=== PATIENT | male | born 1955 | race Caucasian/White ===

== ENCOUNTER 2025-02-02 07:41 | Observation (INO) ==
--- NOTE | 2025-01-11 13:50 | PAT Medication Instructions ---
Medication Instructions Date of Service January 11, 2025 Home Medications atorvastatin 20 mg tablet 20 mg PO QAM cyanocobalamin (vitamin B-12) 500 mcg tablet 500 mcg PO DAILY ginseng root 250 mg capsule 250 mg PO DAILY pyridoxine (vitamin B6) 100 mg tablet 100 mg PO DAILY STOP taking 2 weeks before surgery (or as soon as possible): ginseng root 250 mg capsule 250 mg PO DAILY DO NOT take the morning of surgery cyanocobalamin (vitamin B-12) 500 mcg tablet 500 mcg PO DAILY pyridoxine (vitamin B6) 100 mg tablet 100 mg PO DAILY Take morning of surgery With a small sip of water, OTHERWISE NOTHING TO EAT OR DRINK AFTER MIDNIGHT: atorvastatin 20 mg tablet 20 mg PO QAM Other Notes If you have any questions please call us at [phone] or [phone] or [phone] or [phone]
--- NOTE | 2025-01-16 10:21 | Anesthesiology Consultation ---
Date of Service January 16, 2025 Assessment & Plan (1) Encounter for pre-operative examination: - Check BSG DOS - Infectious disease screening: Per assessment on 01/16/25- No known recent infectious disease contacts or current infectious disease symptoms. - Outpatient joint assessment: Pt currently scheduled for inpatient pathway. If surgeon requests review for outpatient joint pathway, patient is an acceptable candidate for outpatient joint program from anesthesia standpoint pending surgeon's office assessment that patient is motivated, has good support and completes [facility] preop requirements. - New diagnosis diabetes: Patient had elevated glucose at 226 on preop labs. No reported history of diabetes or prediabetes at time of PAT visit. A1C added to preop testing and resulted at 6.9%. Spoke with patient via phone regarding preop lab findings and he indicated that he might have remotely been told hx of prediabetes. Eufemia with surgeon's office made aware. Note written to PCP regarding elevated glucose/A1C- Awaiting response (Dr. Donna Harkins). Patient otherwise acceptable risk for surgery. Chart Review Chart Review: Patient seen in Pre Admission Testing Teaching & Discussion Pre-Anesthesia Teaching/Discussion Notes: Instructed NPO after midnight before surgery,except medications with 15 cc of water. Medication instructions provided according to the PAT guidelines. History Surgery Operation Date: 01/29/25 12:15 Proposed Procedures p Right Total Knee Arthroplasty - Dionicio Young DO Height/Weight Height: 6 ft 1 in Weight: 110.1 kg Allergies Allergy/AdvReac Type Severity Reaction Status Date / Time Sulfa (Sulfonamide Allergy Severe Swelling, Verified 01/12/25 12:43 Antibiotics) fever Medications Home Medications Medication Instructions Recorded Confirmed Last Taken atorvastatin 20 mg tablet 20 mg PO QAM 01/05/25 01/05/25 Unknown cyanocobalamin (vitamin B-12) 500 500 mcg PO DAILY 01/05/25 01/05/25 Unknown mcg tablet ginseng root 250 mg capsule 250 mg PO DAILY 01/05/25 01/05/25 Unknown pyridoxine (vitamin B6) 100 mg 100 mg PO DAILY 01/05/25 01/05/25 Unknown tablet Past Medical History Medical History History of colitis 1990s History of COVID-2019 Hx of gastroesophageal reflux (GERD) Hyperlipidemia Osteoarthritis Exercise / Class Metabolic Activity II 4-5 Yardwork/Stairs/Walk up hill (one FS: no CP, no SOB) Past Surgical History Surgical History History of colonoscopy History of tooth extraction Past Anesthesia History No Hx of Anesthesia Complications and No Family Hx of Anesthesia Complications History of PONV No Hx of PONV and No Hx of Motion Sickness Social History Smoking Status: Former smoker Do You Dip or Chew Tobacco: No (Quit 40 years ago) Smoking End Date: Quit 40 years ago Hx Alcohol Use: Yes Alcohol type: wine alcohol intake frequency: holidays/special occasions only Hx Substance Use: No substance use type: does not use Review of Systems Rare palpitations. Patient denies chest pain, shortness of breath, dyspnea on exertion, fever, chills, cough, wheezing. Physical Exam Vital Signs BP 107/68 P 69 TEMP 98.6 SP02 97%RA RESP 16 Physical Full cervical extension range of motion. Full TMJ range of motion. TMD > 3.5finger breaths Mallampati Score II Dentition: missing molars, right lower side "broken tooth" Lungs: clear throughout to auscultation Cardiac: regular rate and rhythm, no murmurs noted Spine: normal Carotid arteries: negative bruit Extremities: no LE edema Lab Results Anesthesia Preop Results Results Anesthesia Widget: WBC 5.05 K/ul (4.8-10.8) 01/16/25 Hgb 14.6 g/dl (14.0-18.0) 01/16/25 Hct 45.1 % (42.0-52.0) 01/16/25 Plt 148 K/uL (130-400) 01/16/25 Na 140 mmol/L (136-145) 01/16/25 K 5.0 mmol/L (3.5-5.1) 01/16/25 Cl 103 mmol/L (98-107) 01/16/25 CO2 32 mmol/L (21-32) 01/16/25 BUN 16 mg/dl (6-23) 01/16/25 Creat 1.01 mg/dl (0.6-1.4) 01/16/25 Glucose Level 226 mg/dl (70-99(Fasting)) H 01/16/25 PT 10.4 Seconds (9.0-12.0) 01/16/25 PTT 27 Seconds (21-31) 01/16/25 INR 1.0 (0.9-1.1) 01/16/25 HA1c 6.9 % (4.5-5.6) H 01/16/25 Blood Type O Positive 01/16/25 Antibody Screen NEGATIVE 01/16/25 Testing Electrocardiogram Date: 01/16/25 NSR at 61bpm. LAD. Chest X-Ray Date: 01/16/25 Findings: + NAD Stress Test Date: 01/01/21 EF 65-70%. No stress EKG ischemic changes. Negative stress echo for ischemia. 99% MPHR. Estimated workload 13.48. "Normal stress echocardiogram."
[~2025-02-02 07:41] MED LIST: BUPIVACAINE 0.25% PF 30 ML VIAL ONE; BUPIVACAINE 0.5 % 5 MG/1 ML PF 10ML VIAL ONE; DEXAMETHASONE SOD INJ 4 MG/ML VIAL ONE; EPINEPHrine INJ 1 MG/ML AMP ONE
[2025-02-02] MEDS: FAMOTIDINE 20 MG TAB PO SCH ×2 (08:12→14:19)
[2025-02-02] MEDS: ACETAMINOPHEN 500 MG TAB PO SCH ×3 (08:12→14:30)
[2025-02-02] MEDS: LR 60ML/HR IV SCH ×2 (08:13→14:20)
[2025-02-02] MEDS: GABAPENTIN 300 MG CAP PO SCH ×2 (08:13→14:19)
[2025-02-02] MEDS: LR 500ML BOLUS, THEN 15ML/HR IV SCH ×2 (08:58→14:20)
[2025-02-02] MEDS: dexAMETHasone**PF** 10 MG/ML VIAL IV SCH ×2 (08:58→14:19)
--- NOTE | 2025-02-02 09:02 | History & Physical Bridge Note ---
Date of Service February 02, 2025 History & Physical Bridge Note I have examined the patient, reviewed the History & Physical and in the interval since the performance of the History & Physical I have noted the following changes of clinical significance: no changes noted
[2025-02-02] MEDS ORDERED: MIDAZOLAM HCL 1 MG/ML 2ML VIAL ONE (09:36)
[2025-02-02] MEDS ORDERED: fentaNYL citrate PF 100 MCG/2 ML VIAL ONE (09:36)
[2025-02-02] MEDS: TRANEXAMIC ACID 1,000 MG **IV Pre-op IV SCH ×2 (09:41→14:20)
[2025-02-02] MEDS: ceFAZolin 2000MG 2,000 MG/15 ML SYR IV SCH ×3 (09:52→14:30)
[2025-02-02] MEDS ORDERED: PROPOFOL IV EMULSION 10 MG/ML 20 ML VIAL IV ONE (09:58)
[2025-02-02] MEDS: ROPIV 0.5% 246mg, Ketorolac 30mg, EPINEPHrine 0.5mg in NSS INFIL SCH ×2 (10:26→14:20)
[2025-02-02] MEDS: ORTHO JOINT ANESTHETIC ONE (10:27)
[2025-02-02] MEDS: TRANEXAMIC ACID 1,000 MG **IV Intra-op IV SCH ×2 (11:11→14:20)
--- NOTE | 2025-02-02 11:15 | Operative Report ---
PG Post Operative Report Pre & Post Diagnosis Operation Date: 02/02/25 10:00 Pre-Op Diagnosis: Right Knee Osteoarthritis Post-Op Diagnosis: Right Knee Osteoarthritis I identified the patient and participated in the time-out.: Yes Procedure Operation Date: 02/02/25 10:00 Actual Procedures p Right Total Knee Arthroplasty(Right) - Dionicio Young DO Surgeon Dionicio Young DO Alumni Secretary Stu Love PA-C Estimated Blood Loss 50 Findings Consistent with Post-Op Diagnosis Specimens Right femoral and tibial bone Description of Procedure Implants used: I used a Tere Persona total knee arthroplasty system with a size 11 standard femur, H tibia, 34 oval patella, and a size 13 medial congruent polyethylene bearing. All components were cemented in place with Biomet cement. Jose R arrived [facility] for the above procedure. He was seen in the preoperative holding area and the operative extremity was identified and signed. He was given a preoperative antibiotic, TXA, a spinal anesthetic and an adductor nerve block. He was taken back to the operating room and laid on the table in supine position. He was given basic sedation. The operative knee was then prepped and draped in sterile fashion. A timeout was done, and the patient and the operative extremity was properly identified. A midline incision was made directly over the patella. Dissection was taken down to the extensor mechanism. A medial parapatellar arthrotomy was used. The medial retinaculum was released and the fat pad was mostly excised. The knee was flexed and the ACL, PCL, and meniscus were removed. A drill was sent down the center of the femoral canal followed by an intramedullary susanna. Off that susanna a distal femoral cutting block was placed. 9 mm was resected off the distal femur at 5 of valgus. A posterior referencing AP sizing guide was then placed on the distal femur. The femur measured to be a size 11. 2 drill holes were placed in 3 of external rotation. A 4-in-1 cutting block was then impacted into place. Anterior, posterior, and chamfer cuts were then made. The proximal tibia was then exposed. An external tibial alignment guide was placed. A tibial cut guide was then anchored in place and the proximal tibia was then resected. The posterior aspect of the knee was then opened up and any additional meniscus fragments and osteophytes were removed. The tibia measured to be a size H. The tibial plate was then placed in the appropriate rotation and the tibia was drilled and punched. Trial components were then placed. I used a size 13 medial congruent polyethylene insert. The knee was brought through a full range of motion and felt to be stable. The peg holes for the femoral component were then drilled. The patella was then everted and 9 mm was resected off the posterior aspect of the patella. The patella measured to be a size 34 oval. 3 peg holes were then drilled. A trial patella was placed. The knee was once again brought through a full range of motion and felt to be stable. Trial components were then removed. The surrounding soft tissues were injected with 100 cc of an orthopedic pain control cocktail. All components were then cemented into place with Biomet cement. The final polyethylene insert was then snapped into place. Once cement was dry the tourniquet was deflated. Hemostasis was obtained. A dilute betadyne lavage was then done for 3 minutes. The joint was then irrigated with normal saline solution. The medial parapatellar arthrotomy was then closed with #1 Vicryl suture. The skin was closed with 2-0 Vicryl, 3-0V lock suture, and nickie. A soft compressive dressing was placed. He was then transferred to a hospital bed and taken to the postanesthesia care unit in stable condition. He tolerated the procedure well. Stu Love PA-C, was present for the entire procedure. He was critical for patient positioning, prepping, draping, retraction exposure, wound closure and application of sterile dressing. I attest to the content of the Intraoperative Record and any orders documented therein. Any exceptions are noted below.
[2025-02-02] MEDS ORDERED: ONDANSETRON INJ 2 MG/ML 2 ML VIAL ONE (11:17)
--- NOTE | 2025-02-02 12:08 | XRay Report ---
XR knee RT 1 or 2V routine HISTORY: 70 years-old Male Surgical Post Op COMPARISON: 01/16/2025 TECHNIQUE: 2 views of the right knee FINDINGS: Total joint arthroplasty with patellar resurfacing. Anterior midline skin nickie with expected posto perative soft tissue swelling and deep tissue air. No acute fracture or unexpected opaque foreign bod y. IMPRESSION: Satisfactory alignment of the total joint arthroplasty. ACT 112: Negative or not required by law. The above report was generated using voice recognition software. It may contain grammatical, syntax o r spelling errors. Electronically signed by: Efrain Osborn M.D. 02/02/2025 12:07 PM
[2025-02-02] MEDS ORDERED: MAGNESIUM HYDROXIDE SUSP 30 ML UDC PO PRN (12:56)
[2025-02-02] MEDS ORDERED: bisacodyL 10 MG SUPP PR PRN (12:56)
[2025-02-02] MEDS ORDERED: NALOXONE HCL 0.4 MG/1 ML VIAL/CARP IV PRN (12:56)
[2025-02-02] MEDS ORDERED: ONDANSETRON INJ 2 MG/ML 2 ML VIAL IV PRN (12:56)
[2025-02-02] MEDS ORDERED: HYDROmorphone INJ 0.5 MG/0.5 ML SYR IV PRN (12:56)
[2025-02-02] MEDS ORDERED: METOCLOPRAMIDE HCL INJ 5 MG/ML 2 ML VIAL IV PRN (12:56)
[2025-02-02] MEDS ORDERED: oxyCODONE HCL IR 5 MG TAB (IMMEDIATE RELEASE) PO PRN (12:56)
--- NOTE | 2025-02-02 14:01 | Anesthesiology Progress Note ---
Date of Service February 02, 2025 Anesthesia Post Procedure Vital Signs Vital Signs: Temp Pulse Pulse Resp BP Pulse Ox O2 Del Method 02/02/25 13:00 46 L 18 104/63 98 Nasal Cannula 02/02/25 12:45 45 L 17 100/61 97 Nasal Cannula 02/02/25 12:30 47 L 15 105/66 98 Nasal Cannula 02/02/25 12:15 36.4 C L 47 L 20 99/58 L 97 Nasal Cannula 02/02/25 12:05 45 L 18 109/66 97 Nasal Cannula 02/02/25 11:55 48 L 20 100/65 90 Room Air 02/02/25 11:45 48 L 18 108/64 94 Room Air 02/02/25 11:39 36.6 C 49 L 16 103/63 93 Room Air 02/02/25 08:05 36.6 C 55 L 20 126/82 97 Room Air O2 Flow Rate 02/02/25 13:00 2 02/02/25 12:45 2 02/02/25 12:30 2 02/02/25 12:15 2 02/02/25 12:05 2 02/02/25 11:55 02/02/25 11:45 02/02/25 11:39 02/02/25 08:05 Transfer of Care Handoff Completed per policy Notes Mental Status: alert / awake / arousable Patient Amnestic to Procedure: Yes Nausea / Vomiting: adequately controlled Pain: adequately controlled Airway Patency, RR, SpO2: stable & adequate BP & HR: stable & adequate Hydration State: stable & adequate Neuraxial Anesthesia: was administered and sensory block is resolving Anesthetic Complications: no major complications apparent and Pt Satisfied with anesthetic care
[2025-02-02] MEDS: BUPIVACAINE LIPOSOME 1.3% 133 MG/10 ML VIAL ONE (14:20)
[2025-02-02] MEDS: KETOROLAC TROMETHAMINE 15 MG/ML VIAL IV SCH (14:30)
[2025-02-02] MEDS ORDERED: ceFAZolin 1000MG 1,000 MG/7.5 ML SYR IV SCH (17:45)
[2025-02-02] MEDS: DOCUSATE SODIUM 100 MG CAP PO SCH (20:49)
[2025-02-02] MEDS: SENNA 8.6 MG TAB PO SCH (20:49)
[2025-02-02] MEDS: ASPIRIN 81 MG ECTAB PO SCH (21:22)
--- NOTE | 2025-02-03 06:59 | Orthopedic Progress Note ---
Date of Service February 03, 2025 Assessment & Plan (1) Status post right knee replacement: Overall he seems to be doing better. Will see how he does today with physical therapy. As long as he has a stability he can be discharged to home. The nursing staff can change his dressing after physical therapy. He is on aspirin for DVT prophylaxis. Mirta Odell was seen and examined at bedside this morning. Overall he is doing okay. He did try to get up last night and had a slip and fall. He had a hyperflexion to his right knee. He then said his legs felt wobbly. He said that yesterday he was unable to do a straight leg raise. However, this morning is feeling better and is able to do a straight leg raise. He has no other complaints.. Review of Systems All systems reviewed & are unremarkable except as noted in HPI & below. Physical Exam On physical exam of the right knee, the Hood wrap is clean and dry. He has ice on his knee. He is able to easily do a straight leg raise.. Results & Data Results & Data Laboratory Results . Diagnostic Findings Postoperative x-rays of the right knee show the prosthesis to be in anatomic alignment without any evidence of fracture complication, or loosening.. PG Care Time/CCT Total # of Minutes Spent Total Time Spent with Patient: Total time spent is greater than 50% in coordination of care (as documented) at patient's floor/unit and/or counseling patient: Coding Level of Care Code 81352 Post Operative Follow-Up Diagnoses Status post right knee replacement Z96.651
--- NOTE | 2025-02-03 07:00 | Discharge Summary ---
Date of Service February 03, 2025 Principal Diagnosis Same as "Discharge Diagnosis" noted below under Discharge Instructions. Discharge Exam On physical exam of the right knee, the Hood wrap is clean and dry. He has ice on his knee. He is able to easily do a straight leg raise.. Discharge Data Procedures Performed Operation Date: 02/02/25 10:00 Actual Procedures p Right Total Knee Arthroplasty(Right) - Dionicio Young DO Ordered Studies 02/02/25 05:00 US - OR guided needle placemen Routine Hospital Course (1) Status post right knee replacement: On February 02, 2025 Jose R arrived at [facility] and underwent a right knee replacement without complication. He had a spinal anesthetic. Postoperatively he was started on aspirin for DVT prophylaxis and transferred to the general orthopedic floors. His hospital course was relatively uneventful. The first night, he did have a fall where he had a hyperflexion injury to his right knee. He was helped back into bed. The next morning he was starting to feel better. He was able to do a straight leg raise. His vital signs were stable and his pain was well-controlled. He was seen by physical therapy to do ambulation and range of motion exercises. He was then discharged to home. He will follow-up with orthopedics in 2 weeks. PG Care Time/CCT Total # of Minutes Spent Total Time Spent with Patient: Total time spent is greater than 50% in coordination of care (as documented) at patient's floor/unit and/or counseling patient: Discharge Plan Discharge Items Patient Disposition: Home - Self-Care Reason For Visit: Right knee Arthritis Discharge Diagnosis: Right knee replacement Activity: Per Instructions section Non-emergency contact: Surgeon Call non-emergency contact if: your wound has increased redness and your wound has increased drainage Follow-up/Referrals: PCP,NO [Physician] - Diet: Regular Addtl Attending Provider Instructions: Activity and Therapy Recommendations: * If you are using [facility] then therapy will be provided at your home until they feel you have accomplished all of your goals. * If you are using [facility] then Physical Therapy will be provided until they feel you are ready to start Outpatient Physical Therapy. * If you are not using home therapy then Outpatient Physical Therapy should start about 3-5 days from your day of surgery. Therapy will last about 6-10 weeks * It is important not to put a pillow under your knee when you are relaxing or sleeping. It is just as important to make sure you are getting your knee perfectly straight as it is to regain your knee bend. * You were shown a series of exercises in the hospital. Do these exercises three times each day including the exercises you were shown in physical therapy. * Get up and walk several times each day. For the first four weeks, try not to stand or walk for more than one hour at a time. If you do stand or walk for more than one hour, you will not hurt anything, but your leg will likely swell. * As you feel comfortable, you may change from the walker or crutches to a cane and then to independent walking. Medications: * Narcotic You will likely be sent home from the hospital with a prescription for the narcotic pain medication that worked best throughout your stay. * Cefadroxil -take the antibiotic twice a day for 10 days to help prevent infection. * Aspirin Most patients will be required to take Aspirin 81mg twice a day for 6 weeks after surgery. This is obtained [id number] and a prescription is not necessary. * Other medications may be prescribed for specific circumstances. If you have any questions, please call the office at . * Resume previous home medications unless otherwise instructed TEDs/Elastic Stockings: The white elastic stockings help limit swelling and prevent blood clots from for wilmar in your legs.~ The more you wear them, the more they work. Wear them for 2 weeks. Dressing Care: The dressing can be changed after physical therapy on postop day #1. Daily dry dressing changes for a few days, especially if the incision is still draining some. If the incision is not draining then you may leave the nickie open to air. If there is a little bit of drainage or if the nickie are getting stuck on your clothing then cover the incision with a dry dressing. The nickie will be removed at your 2 week follow-up appointment. Showering: You may shower 5 days from the day of surgery as long as the incision is no longer draining. You may shower with the nickie exposed. Let soapy water run over the nickie and pat them dry. Do not scrub or soak the incision. Diet: You may resume your previous diet. Things To Watch For: * Drainage from the incision site that occurs more than one week after your surgery. * Increased redness at the incision site. * Fever above 102 degrees Fahrenheit. * Unusual chest pain or shortness of breath. * Call [facility] at with any of the above problems Follow-Up Visit: Follow-up with Dr. Young's office 2-3 weeks after your day of surgery. We will remove your nickie and answer any questions. If you have any additional questions or concerns, Dr Young is usually in the office at the same time and will be available An appointment was probably scheduled when you signed-up for surgery in the office. If you have any questions call Office Instructions: More detailed instructions as well as Frequently Asked Questions were provided in a folder by our office when you signed-up for surgery. Please review these instructions when you get home. If you have any further questions or concerns, please feel free to call the office at [phone] Pending Studies at Discharge: No Stand-Alone Forms: My [facility], Smoking Cessation Medications and DC Order Prescriptions: New cefadroxil 500 mg capsule 500 mg PO BID 10 Days Qty: 20 0RF oxycodone 5 mg tablet 5 mg PO Q6H PRN (Reason: pain) Qty: 30 0RF aspirin 81 mg Tablet,Delayed Release (Dr/Ec) 81 mg PO BID 42 Days Qty: 0 0RF Continued (DME) Wheeled Walker Misc See Rx Instructions .MEDSUPPLY Qty: 1 0RF Rx Instructions: As directed atorvastatin 20 mg Tablet 20 mg PO QAM cyanocobalamin (vitamin B-12) 500 mcg Tablet 500 mcg PO DAILY pyridoxine (vitamin B6) 100 mg Tablet 100 mg PO DAILY ginseng root 250 mg Capsule 250 mg PO DAILY Discharge Orders: Discharge Order (Routine); Ordered 02/03/25 Ordered By: Dionicio Young Admission Data Admit Date/Time: 02/02/25 11:44 Attending Provider: Dionicio Young Admit Provider: Dionicio Young Primary Care Provider: Donna Harkins
[2025-02-03 07:40] VITALS: BP 111/69; PULSE 51; RESP 16; TEMP 97.7; O2SAT 98
[2025-02-03] MEDS: PYRIDOXINE HCL 50 MG TAB PO SCH (07:48)
[2025-02-03] MEDS: ATORVASTATIN 20 MG TAB PO SCH (07:49)
[2025-02-03] MEDS: MULTIVITAMIN TAB PO SCH (07:49)
[2025-02-03] MEDS: dexAMETHasone 4 MG TAB PO SCH (07:49)
== END 2025-02-03 12:22 | disposition home or self-care (01) ==
LOC: PACUINP 07:41 → ASU 07:41 → 3E 13:53